=== PATIENT | male | born 1945 | race Caucasian/White ===

== ENCOUNTER 2020-11-16 10:17 | Outpatient (CLI) | payer MEDICARE, SELFPAY ==
--- NOTE | 2020-11-16 10:27 | XR_ITS ---
WS: [id number] CHEST 2 VIEWS HISTORY: CHEST PAIN, UNSPECIFIED COMPARISON: 12/07/2014 Lungs: Benign granuloma at the RIGHT costophrenic angle. Otherwise lungs are clear. Mild hyperexpansi on from emphysema. Cardiac size: Normal. Mediastinum/Aorta: Mild atherosclerosis aorta. Bones: Normal. XR/XR chest 2V* [id number] IMPRESSION: 1. Mild chronic emphysema 2. Mild atherosclerosis aorta.
== END 2020-11-16 10:18 | disposition home or self-care (01) ==
PROVIDERS: PCP Family Medicine; Visit Provider Family Medicine
DX: R07.9 Chest pain, unspecified (principal); J43.9 Emphysema, unspecified; I70.0 Atherosclerosis of aorta
CPT/HCPCS: 71046

== ENCOUNTER 2020-12-09 08:59 | Outpatient (CLI) | payer MEDICARE, SELFPAY ==
[2020-12-09 09:08] VITALS: BMI 28.3
--- NOTE | 2020-12-09 09:21 | ECG_ITS ---
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 Baseline heart rate was 54 beats per minute. Baseline blood pressure was 144/87 millimeters of mercury. Target heart rate was 145 beats per minute. Maximum heart rate achieved was 134, which was 92 % of the target heart rate. Maximum blood pressure was 191/91 millimeters of mercury. Total exercise time was 6 minutes 36 seconds. Maximum METs achieved was 10.2, maximum VO2 was 35.7. The reason for ending the test was maximum effort achieved. The patient complained of shortness of breath during the stress test, which then resolved at the end of the test. ELECTROCARDIOGRAM: BASELINE: Sinus rhythm, normal axis, no significant ST-T changes at the baseline noted. EXERCISE: At the peak exercise level, no significant ST-T changes suggestive of ischemia noted. RECOVERY: During the recovery period, heart rate dropped appropriately. No significant ST-T changes in the recovery suggestive of ischemia noted. CONCLUSION: 1. Exercise capacity fair. 2. Heart rate response was appropriate. 3. Blood pressure response was hypertensive. 4. Symptoms not suggestive of ischemia. 5. Electrocardiogram portion of the stress test was not suggestive of ischemia. 6. Nuclear scan will be documented separately. Electronically Signed On 12-12-2020 20:34:47 CDT by GABRIEL GONZALEZ [id number]
--- NOTE | 2020-12-09 09:22 | NMCV_ITS ---
NM christina perf SPECT r/s* [id number] Miguel Reno Age: 75 Gender: M : 1945 Exam Date: 12/09/2020 10:04 Ordering Phys: Neyda Welch MD Technologist: JOYCE Mobley Exam Location: [facility] Indications: Chest pain STRESS TEST [facility] IMAGE PROTOCOL Rest/Stress 1 Exercise Day Radiopharmaceutical Dose (mCi) Administration Site Administered by Rest: Tc-99m 10.7 IV JOYCE Mobley Sestamibi Stress:Tc-99m 32.2 IV JOYCE Mobley Sestamibi Rest: 09-Dec-2020 60 Discovery 630 Stress: 09-Dec-2020 45 Discovery 630 Radiopharmaceutical was injected at 86 % maximum heart rate. Images obtained in supine and prone position. 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 Medium-sized area of patchy reduced tracer uptake noted on both stress and rest images in the basal to mid anterior and anteroseptal wall. In the absence of wall motion abnormal most likely it is an artifact FUNCTIONAL RESULTS (calculated via Gated SPECT) Stress Image LV EF (%): 71 Stress EDV (mL):55 TID: 0.68 Stress ESV (mL):16 Rest Image LV EF (%): 71 FUNCTIONAL FINDINGS: There is hyperdynamic left ventricular systolic function. IMPRESSIONS Hyperdynamic LV function no wall motion abnormality. No ischemia noted on the study. EKG segment will be documented separately. Maggie Arias MD (Electronically Signed) Final Date: 10 December 2020 16:13 S
[2020-12-09 10:58] VITALS: BP 152/64; PULSE 99
== END 2020-12-09 09:00 | disposition home or self-care (01) ==
PROVIDERS: PCP Family Medicine; Visit Provider Family Medicine
DX: R07.9 Chest pain, unspecified (principal); I10 Essential (primary) hypertension
CPT/HCPCS: 78452; 93017; A9500

== ENCOUNTER → 2021-03-30 08:35 | Outpatient (BNVA) | payer MEDICARE, SELFPAY | PROVIDERS: PCP Family Medicine; Referring Provider Family Medicine; Visit Provider Specialist | DX: M19.042 Primary osteoarthritis, left hand (principal); M79.642 Pain in left hand | CPT/HCPCS: 73130 ==

== ENCOUNTER → 2021-03-31 08:34 | Outpatient (BNVA) | payer MEDICARE, SELFPAY | PROVIDERS: PCP Family Medicine; Visit Provider Specialist | DX: M65.30 Trigger finger, unspecified finger (principal); Z20.822 Contact with and (suspected) exposure to COVID-19 | CPT/HCPCS: 87635 ==

== ENCOUNTER 2021-04-05 05:45 | Day surgery (SDC) | payer MEDICARE, SELFPAY ==
[2021-04-05] VITALS (9 sets, daily range): BP systolic 108–140; BP diastolic 73–86; PULSE 50–59; RESP 10–20; TEMP 36.1–36.3; O2SAT 91–99; BMI 28.8
[2021-04-05] MEDS: acetaminophen 1,000 MG/100 ML PIGGYBACK 400 MG IV (06:15)
[2021-04-05] MEDS: sodium chloride 0.9% 1,000 ML 30 ML IV (06:15)
[2021-04-05] MEDS: CELEcoxib 200 mg Capsule 400 MG PO (06:15)
[2021-04-05 06:34] LABS: Basophils # 0.1 10^3/uL (0.0-0.1); Eosinophils # 0.2 10^3/uL (0.0-0.8); Eosinophils % 2.6 %; Hematocrit 45.1 % (42.0-52.0); Hemoglobin 15.4 g/dL (11.7-16.6); Lymphocytes % 31.8 %; Mean Corpuscular HGB Conc 34.1 g/dL (30.0-36.0); Mean Corpuscular Hemoglobin 29.3 pg (28.0-34.0); Mean Corpuscular Volume 85.9 fL (80-94); Mean Platelet Volume 9.8 fL (7.4-10.4); Monocytes # 0.4 10^3/uL (0.2-0.9); Monocytes % 6.2 %; Neutrophils # 3.64 10^3/uL (1.8-7.7); Neutrophils % 58.2 %; Nucleated Red Blood Cells % 0 %; Platelet Count 145 10^3/cmm (130-400); Red Blood Count 5.25 10^6/uL (4.1-5.3); Red Cell Distribution Width 12.8 % (12.1-15.1); White Blood Count 6.3 10^3/uL (4.0-10.0)
[2021-04-05 06:48] LABS: Alanine Aminotransferase 14 U/L (0-41); Albumin Level 4.2 g/dL (3.5-5.2); Alkaline Phosphatase 43 IU/L (40-130); Anion Gap 13.9 (5-19); Aspartate Amino Transferase 14 U/L (0-40); Blood Urea Nitrogen 21 mg/dL (8-23); Calcium 8.9 mg/dL (8.5-10.5); Carbon Dioxide 23 mmol/L (22-29); Chloride 106 mmol/L (98-107); Globulin 2.2 g/dL (1.3-4.6); Glucose 98 mg/dL (65-115); Osmolality Calculated 291 mOsm/kg (285-295); Potassium 3.9 mmol/L (3.5-5.1); Sodium 139 mmol/L (136-145); Total Bilirubin 0.6 mg/dL (0.15-1.2); Total Protein 6.4 g/dL (6.6-8.7)
--- NOTE | 2021-04-05 06:52 | P.HPUD_ITS ---
Surgery/Procedure H&P Update DATE OF PROCEDURE: April 05, 2021 DATE H&P PERFORMED: 03/30/21 H&P UPDATE INFORMATION: I have reviewed H&P completed within last 30 days, I have examined patient prior to procedure, No changes to prior documentation and H&P is in [facility] EMR on date indicated PREOP DIAGNOSIS: Left ring trigger finger PLANNED PROCEDURE: Operation Date: 04/05/21 07:00 Proposed Procedures p left ring finger Trigger Finger Release [id number] m65.30(Left) - Yulia Christopher MD Related Problem List Diagnoses (1) Trigger finger, left ring finger:
--- NOTE | 2021-04-05 07:32 | ANES.PREANE2 ---
Pre-Anesthetic Assessment Pre-Anesthetic Assessment: Height/Weight: Height 1.8 m Weight 93.894 kg Temp Pulse Resp BP Pulse Ox 97.4 F L 58 L 18 140/84 94 04/05/21 06:44 04/05/21 06:44 04/05/21 06:44 04/05/21 06:44 04/05/21 06:44 Preop Diagnosis: Left ring trigger finger Proposed Procedure: Operation Date: 04/05/21 07:00 Proposed Procedures p left ring finger Trigger Finger Release [id number] m65.30(Left) - Yulia Christopher MD Was Beta Mason taken within 24 hours: N/A Was Clonidine taken within 24 hours: N/A Last intake: Intake Last Liquid Date 04/04/21 Last Solid Date 04/04/21 Social: Social History: No alcohol and No tobacco Exam: Pre-Anes Outpt Exam: alert, oriented x 3, clear to auscultation bilaterally and regular rate & rhythm Airway: Submandibular: WNL Cervical ROM: WNL MP: 2 Dentition: False CV/HEM: CV/HEM: HTN Metabolic: Metabolic: Hyperlipidemia Anesthetic Plan: ASA status: 2 Anesthesia: MAC and Regional (specify below) (Qasim masterson) Risk of > 500 ml blood loss (7ml/kg in children): No Meds/Allergies Current Medications: Current Medications Generic Name Dose Route Start Last Admin Trade Name Freq PRN Reason Stop Dose Admin Sodium Chloride 1,000 mls @ 30 ml s/hr 04/05/21 06:00 04/05/21 06:15 Sodium Chloride 0.9% IV 04/06/21 05:59 30 mls/hr .Q24H EFRAIN Administration PFSH Anesthesia PFSH: Medical History Basal cell carcinoma Social History Smoking and tobacco status: former smoker (25 years ago ) Data Anesthesia CBC & Chem 7: 04/05/21 06:25 04/05/21 06:25 Other Labs: Laboratory Results - last 48 hr 04/05/21 04/05/21 06:25 06:25 WBC 6.3 RBC 5.25 Hgb 15.4 Hct 45.1 MCV 85.9 MCH 29.3 MCHC 34.1 RDW 12.8 Plt Count 145 MPV 9.8 Neut % (Auto) 58.2 Lymph % (Auto) 31.8 Lewis % (Auto) 6.2 Eos % (Auto) 2.6 Baso % (Auto) 1.0 Neut # (Auto) 3.64 Lymph # (Auto) 2.0 Lewis # (Auto) 0.4 Eos # (Auto) 0.2 Baso # (Auto) 0.1 Nucleated RBC % (auto) 0 Nucleated RBCs # 0.0 Sodium 139 Potassium 3.9 Chloride 106 Carbon Dioxide 23 Anion Gap 13.9 BUN 21 Creatinine 0.9 GFR Calculation Not Reportable Glucose 98 Calculated Osmolality 291 Calcium 8.9 Total Bilirubin 0.6 AST 14 ALT 14 Alkaline Phosphatase 43 Total Protein 6.4 L Albumin 4.2 Globulin 2.2 Cardiac Studies: No Data to Display
--- NOTE | 2021-04-05 08:16 | PM.OP ---
Operative Report Date of procedure: April 05, 2021 Pre-op Diagnosis: Left ring trigger finger Post-op diagnosis: same Post-op Findings: Very thickened A1 joseline and tenosynovium Procedure Done: Left ring finger trigger release Implants: None Pathology: none sent Surgeon: Yulia Christopher Firefighter: None Anesthesia: MAC (With [place] block) Estimated blood loss (mL): 0 Tourniquet time (min): 31 Tourniquet time: At 250 mmHg IV fluids (mL): 600 Urine output (mL): 0 Urine output: No Sagastume Complications: None Findings: Severely thickened A-1 joseline and tenosynovium Condition: stable Disposition: PACU (Then discharge to same day and home) Brief History: This 76-year-old gentleman presented with significant triggering of the left ring finger. It was painful for him, and he wished to have a release performed. Risks and complications were discussed with him. Consents were signed preoperatively. Questions were answered. Procedure: Patient was brought to the operating theater. He was placed on the operating room table. A [place] block was administered without difficulty. Patient tolerated it well. Ancef 2 g was administered prophylactically. A tourniquet was placed high on the arm and was elevated for the Qasim block following exsanguination. Tourniquet time was 31 minutes. Surgical pause was performed prior to commencement of the surgical procedure. At the time of the surgical pause we identified the site and side of surgery. We also identified the patient's identity and appropriate administration of IV antibiotics. Following the surgical pause, an incision was made along the distal palmar crease beneath the ring finger. Dissection continued through the skin to the subcutaneous tissues using a scalpel. Blunt dissection was then utilized to spread soft tissues and allow access to the A1 joseline. It was then incised longitudinally and sharply using a knife. This was accomplished without difficulty and atraumatically. Once the A1 joseline was released, tendons were brought up out of the wound and evaluated. There were no gross masses on the tendons. Tendons were returned to normal position. We carefully evaluated proximal and distal to the A1 joseline. There was significant soft tissue thickening proximally in the palm and this was released as well. Care was taken to assure complete release. We then irrigated the wound and subsequently closed it with 3-0 nylon with an interrupted mattress type suture. Following closure of the wound, the wound was injected with bupivacaine into the subcutaneous tissues as a local anesthetic. Sterile dressing was then placed consisting of OpSite, fluffed fluffs, sterile soft roll, and an Kenneth wrap. The patient was returned to recovery in satisfactory condition. He will be discharged home to follow-up with me in the office. There were no complications and no specimens. Associated Problem List Diagnoses (1) Trigger finger, left ring finger:
--- NOTE | 2021-04-05 08:40 | SUR.PHASEI ---
0831 PATIENT TO OPS AT THIS TIME. NO DISTRESS. RR EVEN AND UNLABORED. DRESSING TO LEFT HAND, CDI. PATIENT DENIES PAIN.
--- NOTE | 2021-04-05 09:06 | PC.NURSE ---
ANESTHESIA STATED THE PATIENT WILL HAVE TO WAIT UNTIL [address] TO DRIVE HIMSELF HOME. PT STATED HE WAS TOLD BY THE DR HE COULD DRIVE HIMSELF AFTER WAITING FOR THE MEDS TO WEAR OFF. PT WILL WAIT IN GI SPECIALS ROOM ONCE RECOVERED FROM PHASE II.
--- NOTE | 2021-04-05 09:25 | PC.NURSE ---
PT TAKEN TO GI, REPORT GIVEN TO ANTHONY. BREAKFAST TRAY ORDER PLACED. SPOKE WITH DR TODD, SHE STATES SHE DID NOT TELL PATIENT HE COULD DRIVE HOME AFTER THE PROCEDURE. DR CALLED DAUGHTER, DAUGHTER STATES PT TOLD HER HE HAD A RIDE ARRANGED WITH A JAMALEE. SPOKE WITH PT AGAIN. HE WILL ATTEMPT TO REACH [address].
--- NOTE | 2021-04-05 15:01 | ANE.PACU2 ---
Inpatient post-anesthesia follow up: Airway intact: Yes Vital signs: Temperature 97.0 F Pulse Rate 50 Respiratory Rate 18 Blood Pressure 119/73 Pulse Oximetry 94 Oxygen Delivery Me thod Room Air Oxygen Flow Rate 6 Fraction of Inspir ed Oxygen Hydration adequate: Yes Nausea and vomiting: No Pain level: 1 Mental status: Baseline
== END 2021-04-05 10:18 | disposition home or self-care (01) ==
PROVIDERS: PCP Family Medicine; Visit Provider Specialist
PROC: (CPT 26055; principal; 2021-04-05 07:00)
DX: M65.342 Trigger finger, left ring finger (principal); I10 Essential (primary) hypertension; E78.5 Hyperlipidemia, unspecified; Z87.891 Personal history of nicotine dependence
CPT/HCPCS: 26055; 36415; 80053; 85025; J0690; J2250; J2405; J2704; J3010; J3490; J7030